=== PATIENT | female | born 1995 | race American Indian/Alaskan Native ===

== ENCOUNTER 2025-02-11 22:33 | Emergency (ER) | payer OTHER, MEDICAID, SELFPAY ==
[2025-02-11 22:34] VITALS: BMI 37.5
--- NOTE | 2025-02-11 22:35 | EKG_ITS ---
[facility] Test Date: 2025-02-11 Pat Name: CATRACHITA LORA Department: Room: - Gender: Female Car Porter: : 1995 Requested By: Denny Linares Order Number: [id number] Reading MD: Denny Linares Measurements Intervals [place] Rate: 79 P: -2 [place]: 151 QRS: 47 QRSD: 97 T: 7 QT: 348 QTc: 400 Interpretive Statements SINUS RHYTHM NONSPECIFIC T-WAVE ABNORMALITY Compared to ECG 08/15/2023 05:35:02 T-wave abnormality now present Sinus bradycardia no longer present /store/S0/[id number]
[2025-02-11 23:01] VITALS: BP 155/97; PULSE 81; RESP 18; TEMP 36.7; O2SAT 98
[2025-02-11] MEDS: MECLIZINE HCL 25 MG TABLET PO (23:10)
--- NOTE | 2025-02-11 23:57 | XR_ITS ---
Examination: CT brain head without contrast. 2-D sagittal coronal reconstructions Date and time of exam:February 12, 2025 0047 hours INDICATIONS: High blood pressure dizziness episodes beginning today CTDI: vol (mGy):57 DLP: (mGycm):1100 Technique: Multiple CT axial sections of the brain have been obtained, 5 mm slice thickness. Contrast has not been administered. 2-D sagittal, coronal reconstructions have been obtained Low dose protocols were performed. One or more of the following dose reduction techniques were used; automated exposure control, adjustment of the mA and/or KV according to patient size, use of iterative reconstruction technique. Findings: No significant ventricular enlargement. Intra-axial or extra-axial hemorrhage density is not seen. No mass effect or midline shift Basal cisterns are not remarkable. Fourth ventricle is midline. Cranial vault intact. Impression: Negative for acute hemorrhage, mass effect or midline shift. Advise clinical correlation follow up accordingly
[2025-02-12] MEDS: DIAZEPAM 5 MG TABLET 10 MG PO (00:18)
[2025-02-12 00:20] LABS: Collection Type, Urine Clean Catch; Squamous Epithelial Cell,Urine 0 /hpf (0-5)
[2025-02-12 00:26] LABS: Bilirubin,Urine Negative (Negative); Blood,Urine Trace (Negative); Clarity,Urine Clear (Clear/Hazy); Color,Urine Colorless (Lt Yel-Yel); Glucose, Urine Negative (Negative); Ketones,Urine Negative (Negative); Leukocyte Esterase,Urine Negative (Negative); Nitrite,Urine Negative (Negative); Protein,Urine Negative (Neg - Trace); RBC,Urine 4 /hpf (0-3); Specific Gravity,Urine 1.014 (1.001-1.035); Urobilinogen,Urine Negative mg/dL (0.0-1.0); WBC,Urine < 1 /hpf (0-5)
[2025-02-12 00:38] LABS: Amphetamine/Methamp Scrn,U Negative (Negative); Barbiturate Screen,Urine Negative (Negative); Benzodiazepines Screen,Urine Negative (Negative); Benzoylecgonine Screen, Ur Negative (Negative); Fentanyl Screen,Urine Negative (Negative); Opiate Screen,Urine Negative (Negative); THC Screen,Urine Negative (Negative)
[2025-02-12 00:44] LABS: Basophils # (Auto) 0.1 Thou/mm3 (0.0-0.2); Basophils % (Auto) 1 % (0-2.5); Eosinophils # (Auto) 0.2 Thou/mm3 (0.0-0.5); Eosinophils % (Auto) 3 % (0-10); Hematocrit 43.9 % (36.0-46.0); Hemoglobin 15.8 g/dL (12.0-16.0); Immature Granulocytes % (Auto) 0 % (0-0); Immature Granulocytes Auto 0.02 Thou/mm3 (0.00-0.00); Lymphocytes # (Auto) 2.7 Thou/mm3 (1.0-4.8); Lymphocytes % (Auto) 31 % (10-50); Mean Corpuscular Volume 89 fL (80-100); Monocytes % (Auto) 11 % (0-12); Neutrophils # (Auto) 4.8 Thou/mm3 (1.8-7.7); Neutrophils % (Auto) 55 % (37-80); Nucleated Red Blood Cell % 0 /100 WBC (0); Platelet Count 317 Thou/mm3 (140-440); RDW Standard Deviation 39.1 fL (36.4-46.3); Red Blood Count 4.94 Miln/mm3 (4.00-5.20); White Blood Count 8.8 Thou/mm3 (3.6-11.0)
[2025-02-12 01:19] LABS: Alanine Aminotransferase 110 U/L (10-49); Albumin, Serum 4.9 gm/dL (3.5-5.0); Albumin/Globulin Ratio 1.9 (1.2-2.2); Alcohol, Blood Medical < 3.0 mg/dL (0-10.0); Alkaline Phosphatase 90 U/L (46-116); Anion Gap 8 (7-16); Aspartate Amino Transferase 33 U/L (0-34); BUN/Creatinine Ratio 14 Ratio (12-20); Bilirubin,Total 0.5 mg/dL (0.3-1.2); Blood Urea Nitrogen 13 mg/dL (9-23); Calcium 9.6 mg/dL (8.3-10.6); Calcium (Corrected) 9.6 mg/dL (8.5-10.1); Carbon Dioxide 28.2 mMol/L (20.0-31.0); Chloride 104 mMol/L (98-107); Creatinine (Component) 0.9 mg/dL (0.6-1.3); Estimated Creatinine Clearance 115.1 mL/min (>60); Globulin 2.6 gm/dL (2.3-3.5); Glucose 101 mg/dL (74-106); Osmolality,Calculated 279 (275-295); Potassium 3.7 mMol/L (3.4-5.1); Sodium 140 mMol/L (136-145); Total Protein 7.5 gm/dL (5.7-8.2); eGFR > 60 See Note
[2025-02-12 01:47] LABS: Syphilis Reactive (Nonreactive)
[2025-02-12 01:48] LABS: MHATP/TP-PA* See Sep Rpt
[2025-02-12 02:34] LABS: HIV (1&2) Antibody Rapid Non-Reactive
[2025-02-12] MEDS: cefTRIAXone 1,000 MG, LIDOCAINE 1% 20 ML 2.1 ML IM (03:04)
[2025-02-12] MEDS: DOXYCYCLINE 100 MG TABLET PO (03:04)
[2025-02-12 03:13] VITALS: BP 126/78; PULSE 86; RESP 16; TEMP 36.9; O2SAT 98
--- NOTE | 2025-02-12 05:11 | EDNOTE_ITS ---
ED Dizzyness RME/HPI General Chief Complaint: Dizziness Stated Complaint: DIZZINESS / HIGH BLOOD Time Seen by Provider: 02/11/25 22:56 Arrival date/time: 02/11/25 22:33 30F (though born biologically male) HTN, and alcohol/drug use presents to ED with 2 days of dizziness. Patient denies AMS, seizures, vision changes, and fall/trauma. Separately, patient would like some STD testing. Limitations: no limitations Related Data Previous Rx's ?Medication ?Instructions ?Recorded Hydrocodone/Acetaminophen * (NORCO 1 tab PO Q6H PRN pa in #5 tabs 05/18/17 5/325 *) ibuprofen 800 mg tablet 800 mg PO TID PRN pain #30 t abs 08/15/23 doxycycline hyclate 100 mg tablet 100 mg PO BID 14 day s #28 tabs 02/12/25 Allergies Allergy/AdvReac Type Severity Reaction Status Date / Time [place] And Derivatives Allergy Intermediate THROAT Verified 05/18/17 21:22 [place] Bee Stings Allergy Intermediate THROAT Uncoded 05/18/17 21:22 [place] Review of Systems Review of Systems Systems Reviewed: All systems reviewed, normal except as documented Constitutional Constitutional: Reports system reviewed and no additional complaints, except as documented, Denies fever(s) and Denies headache(s) ENT Ears, Nose, Mouth, and Throat: Reports as per HPI, Denies disequilibrium, Denies headache(s) and Reports vertigo Cardiovascular Cardiovascular: Reports system reviewed and no additional complaints, except as documented, Denies chest pain and Denies dyspnea Respiratory Respiratory: Reports system reviewed and no additional complaints, except as documented, Denies cough and Denies dyspnea Gastrointestinal Gastrointestinal: Reports system reviewed and no additional complaints, except as documented, Denies abdominal pain, Denies nausea and Denies vomiting Neurologic Neurologic: Reports system reviewed and no additional complaints, except as documented, Denies confusion, Denies disequilibrium, Denies headache(s) and Reports vertigo Psychiatric Psychiatric: Denies confusion Past Medical History Past Medical History CARDIAC: Negative Congestive Heart Failure RESPIRATORY: Positive Asthma; Negative Chronic Obstructive Pulmonary Disease (COPD) GENITOURINARY: Negative Renal Disease ENDOCRINE: Negative Diabetes Mellitus Type 1 or Diabetes Mellitus Type 2 Social History SMOKING STATUS: Never smoker ED Exam General Limitations: Present no limitations General appearance: Present alert and in no apparent distress Head Head exam: Present atraumatic Eye Eye exam: Present normal appearance, PERRL and EOMI ENT ENT exam: Present normal exam, normal oropharynx and mucous membranes moist Neck Neck exam: Present normal inspection, full ROM and trachea midline Chest Chest inspection: Present normal inspection and symmetric chest wall rise Respiratory Respiratory exam: Present normal lung sounds bilaterally Cardiovascular Cardiovascular exam: Present regular rate, normal rhythm and normal heart sounds Abdominal Exam Abdominal exam: Present soft and normal bowel sounds Extremities Exam Extremities exam: Present normal inspection and full ROM Back Exam Back exam: Present normal inspection and full ROM Neurological Exam Neurological exam: Present alert, oriented X3 and CN II-XII intact Psychiatric Psychiatric exam: Present normal affect and normal mood Skin Skin exam: Present warm, dry, intact and normal color Course Quality Measures none Orders Category Date Time Status EKG (ED ONLY) *Do not use* NOW Care 02/11/25 22:[address] head/brain wo con Stat Exams 02/11/25 23:57 Taken EKG (ED Only) Stat Exams 02/11/25 22:35 Draft Alcohol, Blood Medical Stat Lab 02/11/25 23:56 Completed CBC Stat Lab 02/11/25 23:56 Completed CMP [Comprehensive Metabolic Panel] Stat Lab 02/11/25 23:56 Completed Chlamydia/GC/TV - PCR Stat Lab 02/12/25 00:01 Received Drug Screen,Urine Stat Lab 02/12/25 00:01 Completed HIV (1&2) Antibody Rapid Stat Lab 02/12/25 00:08 Completed MHATP/TP-PA* Stat Lab 02/12/25 00:08 Received Syphilis Stat Lab 02/12/25 00:08 Completed Urinalysis Stat Lab 02/12/25 00:01 Completed Diazepam [Valium] Med 02/11/25 23:56 Discontinued 10 mg PO X1 ONE Doxycycline [Vibramycin] Med 02/12/25 02:49 Discontinued 100 mg PO X1 ONE Meclizine HCl [Antivert] Med 02/11/25 22:56 Discontinued 25 mg PO X1 ONE cefTRIAXone [Rocephin] 1,000 mg Med 02/12/25 02:49 Discontinued Lidocaine 1% 20 ml [Xylocaine 1% 20 ML] 2.1 ml IM X1 Vital Signs Vital signs: Vital Signs Temperature 98.1 F 02/11/25 23:01 Pulse Rate 81 02/11/25 23:01 Respiratory Rate 18 02/11/25 23:01 Blood Pressure 155/97 H 02/11/25 23:01 Pulse Oximetry (%) 98 02/11/25 23:01 Oxygen Delivery Method Room Air 02/11/25 23:01 O2 at 98% on RA and WNLs Dizziness MDM Narrative MDM Narrative:: 30F (though born biologically male) HTN, and alcohol/drug use presents to ED with 2 days of dizziness. Patient denies AMS, seizures, vision changes, and fall/trauma. Separately, patient would like some STD testing. Physical exam reveals normal pupil response and EOM. Neck ROM intact. CN II-XII grossly intact. Gait normal. Patient is afebrile, calm, and alert. EKG is NSR. CT no acute abnormalities. No leukocytosis. CMP unremarkable. UA clean. Syphillis screen positive (neg July of last year). GC pending at time of DC. Patient would like to be treated empirically. Meds improved dizziness. Patient data External records reviewed:: [facility] previous records Clinical information provided by:: patient Social determinants that could affect healthcare access:: alcohol use Patient has the following chronic illnesses:: HTN, and alcohol/drug use How is presenting disease/condition affected by chronic disease/condition?: exacerbated by Evaluation data The following diagnostics were reviewed and interpreted by me:: lab results, radiology exam(s) and EKG tracing(s) Lab and/or radiology exams considered but not ordered:: ordered Interpretation Summary: above Medications / Prescriptions Medications or Prescriptions considered but not ordered:: ordered Medication administrations:: Medication Administration History Discontinued Medications Ceftriaxone Sodium 1,000 mg/ (Lidocaine HCl 2.1 ml) 0 mg IM X1 ONE Stop: 02/12/25 02:50 Last Admin: 02/12/25 03:04 Dose: 1,000 mg Documented By: CB Diazepam (Diazepam 5 Mg Tablet) 10 mg PO X1 ONE Stop: 02/11/25 23:57 Last Admin: 02/12/25 00:18 Dose: 10 mg Documented By: Doxycycline Hyclate (Doxycycline 100 Mg Tablet) 100 mg PO X1 ONE Stop: 02/12/25 02:50 Last Admin: 02/12/25 03:04 Dose: 100 mg Documented By: CB Meclizine HCl (Meclizine Hcl 25 Mg Tablet) 25 mg PO X1 ONE Stop: 02/11/25 22:57 Last Admin: 02/11/25 23:10 Dose: 25 mg Documented By: above Consultations Consultation(s) initiated? (list below): No Diagnosis Dizziness Differential Diagnosis: adverse reaction to drug, benign paroxysmal positional vertigo, orthostatic hypotension, vertebral basilar insufficiency, cerebrovascular accident, acute vestibular neuronitis, transient cerebral ischem ia and other (syphillis and dizziness) Most likely diagnosis given after review of the tests above:: syphillis and dizziness Admission Indicated Admission indicated?: not indicated Admission Request Was there a request for admission?: No Disposition Plan Disposition Plan: Discharge Discharge Attestation Discharge Attestation: The patient and all family members were given an opportunity to ask questions and understood the discharge instructions. Discharge instructions specifically effects, indications for sooner follow up or return to the emergency department, and the expected course of current diagnosis. Patient condition: Stable Discharge Plan Plan Patient Disposition: HOME (Self Care) Disposition Comment: Stable Prescriptions/Referrals Prescriptions/Med Rec: New doxycycline hyclate 100 mg tablet 100 mg PO BID 14 Days Qty: 28 0RF No Action Hydrocodone/Acetaminophen * (NORCO 5/325 *) 1 TAB tablet 1 tab PO Q6H PRN (Reason: pain) Qty: 5 0RF ibuprofen 800 mg tablet 800 mg PO TID PRN (Reason: pain) Qty: 30 0RF Referrals: Lincoln Alonso PA-C [Primary Care Provider] - In 1 week Problem List Clinical Impression: Syphilis, Dizziness Patient/Caregiver Discharge Instructions Education Materials: Syphilis, ED Dizziness, Uncertain Cause Additional Instructions: Please follow-up with PCP within 24-48 hours and return immediately if symptoms worsen. Print Language: [place] Stand Alone Forms: Patient Portal Info Letter DENNISE/LUCIANO Supervising Physician FANI Supervising Physician: Dr. Max
[2025-02-12 07:54] LABS: Chlamydia trachomatis PCR Negative (Not Detect); Neisseria Gonorrhoeae DNA PCR Negative (Not Detect); Trichomonas Negative (Negative)
== END 2025-02-12 03:14 | disposition home or self-care (01) ==
PROVIDERS: Physician Assistant; Emergency Provider Emergency Medicine; PCP Physician Assistant
DX: A53.9 Syphilis, unspecified (principal); I10 Essential (primary) hypertension; R42 Dizziness and giddiness; R94.31 Abnormal electrocardiogram [ECG] [EKG]
CPT/HCPCS: 36415; 70450; 80053; 80307; 80320; 81001; 81025; 85025; 86703; 86780; 87491; 87591; 87661; 93005; 96372; 99284; J0696; J3490; A9270; G0480

== ENCOUNTER 2025-06-12 05:23 | Emergency (ER) | payer OTHER, MEDICAID, SELFPAY ==
[2025-06-12 05:36] VITALS: BP 138/89; PULSE 130; RESP 20; TEMP 37.3; O2SAT 100; BMI 36.0
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
[2025-06-12] MEDS: KETOROLAC INJ 30 MG/ML VIAL IM (08:05)
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
[2025-06-12 08:34] VITALS: BP 133/86; PULSE 114; RESP 18; TEMP 36.7; O2SAT 96
[2025-06-12] MEDS: ONDANSETRON ODT 4 MG TABRAP PO (09:15)
== END 2025-06-12 10:09 ==
PROVIDERS: Emergency Provider Family Medicine; PCP Physician Assistant
DX: Z02.89 Encounter for other administrative examinations (principal); S00.81XA Abrasion of other part of head, initial encounter; S80.211A Abrasion, right knee, initial encounter; S00.93XA Contusion of unspecified part of head, initial encounter; S20.01XA Contusion of right breast, initial encounter; S89.92XA Unspecified injury of left lower leg, initial encounter; S19.9XXA Unspecified injury of neck, initial encounter; S29.9XXA Unspecified injury of thorax, initial encounter; V89.2XXA Person injured in unspecified motor-vehicle accident, traffic, initial encounter
CPT/HCPCS: 70450; 71250; 72125; 73562; 81025; 96372; 99283; J1885; Q0162